=== PATIENT | female | born 1970 | race Caucasian/White ===

== ENCOUNTER → 2016-10-24 | Outpatient (CLI) | payer OTHER ==
--- NOTE | 2016-10-24 08:50 | MM ---
Reason for exam: follow-up at short interval from prior study. Last mammogram was performed 6 months ago. History: Family history of premenopausal breast cancer in 2 sisters at age 48 and breast cancer in sister at age 52. Benign excisional biopsy of the right breast. Took hormonal contraceptives for 5 years. MG Diagnostic Mammo RT w CAD CC and MLO view(s) were taken of the right breast. Prior study comparison: April 13, 2016, right breast MG work up mamm w CAD RT. April 10, 2016, bilateral MG screening mammo w CAD. The breast tissue is extremely dense which could obscure a lesion on mammography. Density in question appears improved. Continued 6 month follow up These results were verbally communicated with the patient and result sheet given to the patient on 10/24/16. ASSESSMENT: Probably benign, BI-RAD 3 RECOMMENDATION: Follow-up diagnostic mammogram of both breasts in 6 months.
== END | disposition home or self-care (01) ==
LOC: RADMAMWWP 08:09
PROVIDERS: ATTEND Obstetrics & Gynecology
DX: R92.8 Other abnormal and inconclusive findings on diagnostic imaging of breast (principal); Z80.3 Family history of malignant neoplasm of breast

== ENCOUNTER → 2017-01-02 | Outpatient (CLI) | payer OTHER ==
--- NOTE | 2017-01-02 22:40 | CT ---
EXAMINATION TYPE: CT abdomen pelvis w con DATE OF EXAM: 01/02/2017 7:29 PM HISTORY: F/U after endometrial CA. CT DLP: 1586.1mGycm Automated Exposure Control for Dose Reduction was Utilized. CONTRAST: CT scan of the abdomen and pelvis is performed with IV Contrast, patient injected with 100 mL of Omni paque 300. COMPARISON: CT abdomen pelvis May 05, 2016 FINDINGS: LUNG BASES: No significant abnormality is appreciated. LIVER/GB: No significant abnormality is appreciated. PANCREAS: No significant abnormality is seen. SPLEEN: No significant abnormality is seen. ADRENALS: No significant abnormality is seen. KIDNEYS: No significant abnormality is seen. BOWEL: Evaluation bowel is slightly suboptimal secondary to oral contrast only reaching proximal ilea l loops. There is no suspicious small or large bowel dilatation seen. Normal-appearing appendix is se en from the cecum. UTERUS/ADNEXA: The uterus is surgically absent. There is interval hysterectomy noted. No suspicious a dnexal masses are seen. LYMPH NODES: There is new left external iliac chain adenopathy or abnormal lymph node measuring 2.4 x 1.6 cm on axial image 73. Subcentimeter right external iliac lymph node on axial image 77 is stable. OSSEOUS STRUCTURES: No significant abnormality is seen. OTHER: There is persistent focal prominence of the draining bilateral ovarian veins over iliopsoas mu scles near axial image 53. Developing adenopathy at this level cannot be excluded. IMPRESSION: Interval hysterectomy but new new left pelvic or external iliac chain adenopathy or metas tatic disease is noted. Nonspecific prominence possible subcentimeter lymph nodes along draining ovar doris veins can be followed.
== END | disposition home or self-care (01) ==
LOC: RADCTMAIN 17:07
PROVIDERS: ATTEND Obstetrics & Gynecology
DX: C54.1 Malignant neoplasm of endometrium (principal); Z90.710 Acquired absence of both cervix and uterus
CPT/HCPCS: 74177; Q9967; 80053; 80061; 82306; 83036; 83540; 83550; 84439; 84443; 85025

== ENCOUNTER → 2017-04-16 | Outpatient (CLI) | payer OTHER ==
--- NOTE | 2017-04-16 22:38 | CT ---
EXAMINATION TYPE: CT ChestAbdPelvis w con DATE OF EXAM: 04/16/2017 COMPARISON: 01/02/2017 and 05/05/2016 HISTORY: 46-year-old female follow-up up after endometrial CA. TECHNIQUE: Contiguous axial scanning of the chest, abdomen, and pelvis performed with IV Contrast, pa tient injected with 100 mL of Omnipaque 300. Delayed images through the kidneys were obtained. Davies l/sagittal reconstructions performed. CT DLP: 1498.7 mGycm Automated exposure control for dose reduction was used. FINDINGS: CHEST: The heart is normal size without pericardial effusion. Aorta normal caliber with conventional arch vessel branching anatomy. No thoracic lymphadenopathy. Lungs are clear without consolidation or pleural effusion. ABDOMEN: Small hiatal hernia. Liver, gallbladder, adrenal glands, kidneys, spleen, and pancreas appear within normal limits. No dilated small bowel, free fluid, or free air. There is mild to moderate stool burden without pericolonic inflammatory change. Scattered nonenlarged and borderline enlarged mesenteric lymph nodes measuring up to 8 mm are unchang ed from 05/05/2016. Nodularity along the gonadal veins is relatively stable as compared to 01/02/2017 measuring up to 1.2 c m on the right and 7 mm on the left. PELVIS: Bladder is urine distended. Uterus surgically absent. Ovaries surgically absent. No abnormal fluid co llection in the pelvis. Left external iliac chain lymph node is slightly smaller measuring 1.4 cm versus 1.8 cm, previously. Right external iliac chain lymph node is slightly smaller measuring 6 mm versus 9 mm, previously. No new or progressive lymphadenopathy seen. BONES: No osseous destructive process. IMPRESSION: 1. PREVIOUS EXTRA ILIAC CHAIN LYMPHADENOPATHY SHOWS SLIGHT DECREASE IN SIZE (LEFT: 1.4 CM VERSUS 1.8 CM, PREVIOUSLY; RIGHT: 6 MM VERSUS 9 MM, PREVIOUSLY). 2. NODULARITY ALONG THE GONADAL VEINS PROBABLY REPRESENTING SMALL LYMPH NODES IS ESSENTIALLY STABLE M EASURING UP TO 1.2 CM ON THE RIGHT AND 7 MM ON THE LEFT. 3. OTHER SCATTERED NONENLARGED AND BORDERLINE ENLARGED MESENTERIC LYMPH NODES ARE UNCHANGED FROM 2015. 4. STATUS POST HYSTERECTOMY AND BILATERAL SALPINGO-OOPHORECTOMY. 5. SMALL HIATAL HERNIA.
== END | disposition home or self-care (01) ==
LOC: RADCTMAIN 16:45
PROVIDERS: ATTEND Obstetrics & Gynecology
DX: C54.1 Malignant neoplasm of endometrium (principal); K44.9 Diaphragmatic hernia without obstruction or gangrene; Z90.710 Acquired absence of both cervix and uterus; Z90.722 Acquired absence of ovaries, bilateral
CPT/HCPCS: 71260; 74177; Q9967

== ENCOUNTER → 2017-04-23 | Outpatient (CLI) | payer OTHER ==
--- NOTE | 2017-04-23 08:54 | MM ---
Reason for exam: follow-up at short interval from prior study. Last mammogram was performed 6 months ago. History: Patient is postmenopausal and has history of endometrial cancer at age 45. Family history of premenopausal breast cancer in 2 sisters at age 48 and breast cancer in sister at age 52. Benign excisional biopsy of the right breast. Took hormonal contraceptives for 5 years. Taking estrogen for 1 year beginning at age 45. Physical Findings: Nurse did not find any significant physical abnormalities on exam. MG Diagnostic Mammo w CAD JOHN Bilateral CC and MLO view(s) were taken. Prior study comparison: October 24, 2016, right breast MG diagnostic mammo RT w CAD. The breast tissue is extremely dense which could obscure a lesion on mammography. Finding: There are two punctate calcifications in the right breast. No significant changes in finding since October 24, 2016. These results were verbally communicated with the patient and result sheet given to the patient on 04/23/17. ASSESSMENT: Benign, BI-RAD 2 RECOMMENDATION: Routine screening mammogram of both breasts in 1 year.
== END | disposition home or self-care (01) ==
LOC: RADMAMWWP 08:20
PROVIDERS: ATTEND Obstetrics & Gynecology
DX: R92.8 Other abnormal and inconclusive findings on diagnostic imaging of breast (principal)

== ENCOUNTER → 2018-04-30 | Outpatient (CLI) | payer OTHER ==
--- NOTE | 2018-05-01 10:40 | MM ---
Reason for exam: additional evaluation requested from prior study. Last mammogram was performed 1 year ago. History: Patient is postmenopausal and has history of endometrial cancer at age 45. Family history of premenopausal breast cancer in 2 sisters at age 48 and breast cancer in sister at age 52. Benign excisional biopsy of the right breast. Took hormonal contraceptives for 5 years. Taking estrogen for 1 year beginning at age 45. Physical Findings: Nurse did not find any significant physical abnormalities on exam. MG Diagnostic Mammo w CAD JOHN Bilateral CC and MLO view(s) were taken. Prior study comparison: April 23, 2017, bilateral MG diagnostic mammo w CAD JOHN. October 24, 2016, right breast MG diagnostic mammo RT w CAD. The breast tissue is heterogeneously dense. This may lower the sensitivity of mammography. There is chronic nodularity in the left breast. No significant new findings when compared with previous films. These results were verbally communicated with the patient and result sheet given to the patient on 04/30/18. ASSESSMENT: Negative, BI-RAD 1 RECOMMENDATION: Routine screening mammogram of both breasts in 1 year. (Given the patient's strong family history, the patient may qualify for alternating screening with breast MRI. Also, consideration can be given to genetic testing).
== END | disposition home or self-care (01) ==
LOC: RADMAMWWP 08:10
PROVIDERS: ATTEND Obstetrics & Gynecology
DX: R92.8 Other abnormal and inconclusive findings on diagnostic imaging of breast (principal)
CPT/HCPCS: 77066

== ENCOUNTER → 2018-05-31 | Day surgery (SDC) | payer OTHER ==
[2018-05-28 14:15] VITALS: BMI 35.6
[~2018-05-31] MED LIST: LACTATED RINGERS 1,000 ML IV ONE; LACTATED RINGERS 1,000 ML IV SCH; LIDOCAINE 1% 20 ML VIAL (10MG/ML) FOR IV START INTRADERMA PRN; LIDOCAINE 1% INJ 10MG/ML (20 ML MDV) ONE; PROPOFOL 10 MG/ML 20 ML VIAL IV ONE; fentaNYL (PF) 50 MCG/ML 2 ML AMP ONE
[2018-05-31 07:07] VITALS: TEMP 98.1
--- NOTE | 2018-05-31 07:39 | P.GSHP ---
History of Present Illness H&P Date: 05/31/18 Chief Complaint: Colon cancer screening Patient here today for colonoscopy. Last colonoscopy 7 years ago. Family history of colon cancer in both her mother and father. No bowel complaints. No history of polyps. Past Medical History Past Medical History: Cancer, Hyperlipidemia Additional Past Medical History / Comment(s): migraines, heart murmer "when younger", endometrial cancer History of Any Multi-Drug Resistant Organisms: None Reported Past Surgical History: Breast Surgery, Hysterectomy Additional Past Surgical History / Comment(s): D&C, ovarian cyst, rt breast biopsy, he knee surgery Past Anesthesia/Blood Transfusion Reactions: Motion Sickness, Postoperative Nausea & Vomiting (PONV) Smoking Status: Never smoker - Past Family History Mother Family Medical History: Cancer Father Family Medical History: Cancer Sister(s) Family Medical History: Cancer Brother(s) Family Medical History: Cancer Medications and Allergies Home Medications Medication Instructions Recorded Confirmed Type ALPRAZolam [Xanax] 0.25 mg PO BID PRN 04/19/16 05/28/18 History Multivitamins, Thera [Multivitamin] 1 tab PO DAILY 04/19/16 05/28/18 History buPROPion XL [Wellbutrin Xl] 150 mg PO DAILY 04/19/16 05/28/18 History Ascorbic Acid [Vitamin C] 500 mg PO DAILY 05/28/18 05/28/18 History Calcium Carbonate 1,000 mg PO DAILY 05/28/18 05/28/18 History Estradiol [Estrace] 1 mg PO DAILY 05/28/18 05/28/18 History Rosuvastatin [Crestor] 10 mg PO HS 05/28/18 05/28/18 History Vitamin D3 25 mcg PO DAILY 05/28/18 05/28/18 History Allergies Allergy/AdvReac Type Severity Reaction Status Date / Time No Known Allergies Allergy Verified 05/28/18 14:07 Surgical - Exam Vital Signs Temp Pulse Resp BP Pulse Ox 98.1 F 70 19 105/47 96 05/31/18 07:05 05/31/18 07:05 05/31/18 07:05 05/31/18 07:05 05/31/18 07:05 Physical exam: General: Well-developed, well-nourished HEENT: Normocephalic, sclerae nonicteric Abdomen: Nontender, nondistended Extremities: No edema Neuro: Alert and oriented Assessment and Plan (1) Colon cancer screening Narrative/Plan: Will proceed with colonoscopy at this time. Current Visit: Yes Status: Acute Code(s): Z12.11 - ENCOUNTER FOR SCREENING FOR MALIGNANT NEOPLASM OF COLON SNOMED Code(s): 328201038
--- NOTE | 2018-05-31 07:52 | P.PCN ---
Date of Procedure: 05/31/18 Procedure(s) Performed: PREOPERATIVE DIAGNOSIS: Colon cancer screening, family history POSTOPERATIVE DIAGNOSIS: Diverticulosis PROCEDURE: Colonoscopy ANESTHESIA: MAC SURGEON: Brady Stevens M.D. SPECIMENS: None ENDOSCOPIC PROCEDURE: The patient was placed on the endoscopy table in the left decubitus position. The Olympus colonoscope was inserted into the anus and passed under direct visualization to the base of the cecum. The appendiceal orifice was visualized. From that point the scope was slowly withdrawn inspecting all surfaces carefully. There were no neoplastic inflammatory or polypoid lesions throughout the cecum, ascending, transverse, descending, sigmoid and rectum. There was mild left-sided diverticulosis noted. Digital rectal examination was normal. The patient was taken to the recovery room in stable condition per anesthesia guidelines. RECOMMENDATIONS: Increase fiber. Follow-up colonoscopy 5 years.
[2018-05-31 07:56] VITALS: RESP 16
[2018-05-31 08:15] VITALS: BP 104/69; PULSE 61
== END ==
LOC: ORWHC2ENDO 06:49
PROVIDERS: ATTEND Surgery
DX: Z12.11 Encounter for screening for malignant neoplasm of colon (principal); K57.30 Diverticulosis of large intestine without perforation or abscess without bleeding; Z80.0 Family history of malignant neoplasm of digestive organs; Z85.42 Personal history of malignant neoplasm of other parts of uterus; E78.5 Hyperlipidemia, unspecified; Z79.899 Other long term (current) drug therapy
CPT/HCPCS: J2001; J3010; J2704; G0105

== ENCOUNTER → 2018-06-17 | Outpatient (CLI) | payer OTHER ==
--- NOTE | 2018-06-18 08:44 | XR ---
EXAMINATION TYPE: XR chest 2V DATE OF EXAM: 06/17/2018 COMPARISON: 05/05/2016 TECHNIQUE: PA and lateral views submitted. HISTORY: Pain FINDINGS: The lungs are clear and there is no pneumothorax, pleural effusion, or focal pneumonia. No overt fa ilure. Hypertrophic degenerative change of the spine. IMPRESSION: 1. No acute process.
--- NOTE | 2018-06-18 10:18 | CT ---
EXAMINATION TYPE: CT abdomen pelvis w con DATE OF EXAM: 06/17/2018 COMPARISON: CT 04/16/2017 HISTORY: Pelvic cramps x5 months with nausea CT DLP: 1431.4 mGycm Automated exposure control for dose reduction was used. TECHNIQUE: Helical acquisition of images from the lung bases through the pelvis have been completed. CONTRAST: Performed with Oral Contrast and with IV Contrast, patient injected with 100 mL of Isovue 300. FINDINGS: Minimal basilar atelectatic changes present. Small hiatal hernia suspected. LUNG BASES: No significant abnormality is appreciated. AORTA: No significant abnormality is appreciated. LIVER/GB: No significant abnormality is appreciated. Liver shows low attenuation and is at the upper limit of normal for size, there may be underlying hepatic steatosis PANCREAS: No significant abnormality is seen. SPLEEN: Stable, enlarged ADRENALS: No significant abnormality is seen. KIDNEYS: No significant abnormality is seen. REPRODUCTIVE ORGANS: Uterus and adnexal structures have been removed. BOWEL: Diverticular changes noted in the sigmoid colon. FREE AIR: No Free Air visible. ASCITES: None visible. PELVIC ADENOPATHY: There is improvement along the iliac chain compared to prior exam, no enlarged no obed. RETROPERITONEAL ADENOPATHY: No Retroperitoneal Adenopathy visible. URINARY BLADDER: No significant abnormality is seen. OSSEOUS STRUCTURES: Stable, degenerative disc changes are present in the visualized spine, bony spur present T12-L1 and a left posterior paracentral location IMPRESSION: POSTOP CHANGES. NO SUSPICIOUS ADENOPATHY, IMPROVEMENT IN EXTERNAL ILIAC ADENOPATHY COMPARED TO PRIOR EXAM ON THE LEFT. DIVERTICULOSIS. Additional findings above, no significant interval change
== END | disposition home or self-care (01) ==
LOC: RADCTMAIN 16:17
PROVIDERS: ATTEND Obstetrics & Gynecology
DX: C54.1 Malignant neoplasm of endometrium (principal); K57.30 Diverticulosis of large intestine without perforation or abscess without bleeding; R93.2 Abnormal findings on diagnostic imaging of liver and biliary tract; R16.1 Splenomegaly, not elsewhere classified; Z90.710 Acquired absence of both cervix and uterus; Z98.890 Other specified postprocedural states
CPT/HCPCS: 71046; 74177; Q9967

== ENCOUNTER → 2019-07-30 | Outpatient (CLI) | payer OTHER ==
--- NOTE | 2019-08-01 11:38 | MM ---
Reason for exam: screening (asymptomatic). Last mammogram was performed 1 year and 3 months ago. History: Patient is postmenopausal and has history of endometrial cancer at age 45. Family history of premenopausal breast cancer in 2 sisters at age 48 and breast cancer in sister at age 52. Benign excisional biopsy of the right breast. Took hormonal contraceptives for 5 years. Taking estrogen for 1 year beginning at age 45. Physical Findings: A clinical breast exam by your physician is recommended on an annual basis and results should be correlated with mammographic findings. MG Screening Mammo w CAD Bilateral CC and MLO view(s) were taken. Prior study comparison: April 30, 2018, bilateral MG diagnostic mammo w CAD JOHN. April 23, 2017, bilateral MG diagnostic mammo w CAD JOHN. The breast tissue is heterogeneously dense. This may lower the sensitivity of mammography. There is no discrete abnormality. No significant changes when compared with prior studies. ASSESSMENT: Negative, BI-RAD 1 RECOMMENDATION: Routine screening mammogram of both breasts in 1 year.
== END ==
LOC: RADMAMWWP 16:15
PROVIDERS: ATTEND Obstetrics & Gynecology
DX: Z12.31 Encounter for screening mammogram for malignant neoplasm of breast (principal); Z80.3 Family history of malignant neoplasm of breast
CPT/HCPCS: 77067

== ENCOUNTER → 2020-09-24 | Outpatient (CLI) | payer OTHER ==
--- NOTE | 2020-09-27 09:35 | MM ---
Reason for exam: screening (asymptomatic). Last mammogram was performed 1 year and 2 months ago. History: Patient is postmenopausal and has history of endometrial cancer at age 45. Family history of premenopausal breast cancer in 2 sisters at age 48, breast cancer in maternal grandmother, and breast cancer in sister at age 52. Benign excisional biopsy of the right breast. Took hormonal contraceptives for 5 years. Taking estrogen for 5 years beginning at age 45. Physical Findings: A clinical breast exam by your physician is recommended on an annual basis and results should be correlated with mammographic findings. MG Screening Mammo w CAD Bilateral CC and MLO view(s) were taken. XCCL view(s) were taken of the right breast. Prior study comparison: July 30, 2019, bilateral MG screening mammo w CAD. April 30, 2018, bilateral MG diagnostic mammo w CAD JOHN. The breast tissue is heterogeneously dense. This may lower the sensitivity of mammography. Focal asymmetry upper outer left breast. This finding is changed when compared with previous exams. ASSESSMENT: Incomplete: need additional imaging evaluation, BI-RAD 0 RECOMMENDATION: Special view mammogram of the left breast. If lesion persists on supplemental views, image directed ultrasound is recommended. [facility] will attempt to contact patient to return for supplemental views and ultrasound if indicated.
== END | disposition home or self-care (01) ==
LOC: RADMAMWWP 10:07
PROVIDERS: ATTEND Obstetrics & Gynecology
DX: Z12.31 Encounter for screening mammogram for malignant neoplasm of breast (principal)
CPT/HCPCS: 77067

== ENCOUNTER → 2020-10-08 | Outpatient (CLI) | payer OTHER ==
--- NOTE | 2020-10-08 11:45 | MM ---
Reason for exam: additional evaluation requested from abnormal screening. Last mammogram was performed less than 1 month ago. History: Patient is postmenopausal and has history of endometrial cancer at age 45. Family history of premenopausal breast cancer in 2 sisters at age 48, breast cancer in maternal grandmother, and breast cancer in sister at age 52. Benign excisional biopsy of the right breast. Took hormonal contraceptives for 5 years. Taking estrogen for 5 years beginning at age 45. Physical Findings: Nurse did not find any significant physical abnormalities on exam. MG Work Up Mamm w CAD LT Spot compression CC, spot compression MLO, and LM view(s) were taken of the left breast. Prior study comparison: September 24, 2020, bilateral MG screening mammo w CAD. July 30, 2019, bilateral MG screening mammo w CAD. There is no discrete abnormality including area of concern. These results were verbally communicated with the patient and result sheet given to the patient on 10/08/20. ASSESSMENT: Negative, BI-RAD 1 RECOMMENDATION: Return to routine screening mammogram schedule for both breasts.
== END | disposition home or self-care (01) ==
LOC: RADMAMWWP 10:10
PROVIDERS: ATTEND Obstetrics & Gynecology
DX: R92.8 Other abnormal and inconclusive findings on diagnostic imaging of breast (principal)
CPT/HCPCS: 77065

== ENCOUNTER → 2021-12-13 | Outpatient (CLI) | payer OTHER ==
--- NOTE | 2021-12-13 16:49 | BD ---
EXAMINATION TYPE: Axial Bone Density DATE OF EXAM: 12/13/2021 COMPARISON: NONE CLINICAL HISTORY: 51 years year old Female. ICD-10 CODE: [id number] Height: 5'5 1/2 Weight: 213 FRAX RISK QUESTIONS: Family History (Parent hip fracture): y Secondary Osteoporosis: RISK FACTORS HISTORY OF: Family History of Osteoporosis: y Postmenopausal woman: y MEDICATIONS: Additional Medications: anxiety Additional History: endometrial cancer, 2016 EXAM MEASUREMENTS: Bone mineral densitometry was performed using the Linguastat System. Bone mineral density as measured about the Lumbar spine is: ----- L1-L4(G/cm2): 1.073 T Score Values are as follows: ----- L1: -1.0 ----- L2: -1.0 ----- L3: -0.8 ----- L4: -1.0 ----- L1-L4: -0.9 Bone mineral density about the R hip (g/cm2): 0.939 Bone mineral density about the L hip (g/cm2): 0.983 T Score values are as follows: -----R Neck: -0.7 -----L Neck: -0.4 -----R Total: -0.4 -----L Total: -0.3 FRAX%s: The graph provided illustrates a 8.1 chance for a major osteoporotic fx and a 0.1 chance for the hips probability for fx in 10 years time. IMPRESSION: Normal (Values between +1 and -1 indicate normal bone mass). Note that measurements are bordering on osteopenia lumbar spine. Consider repeating this study in 5 years or sooner if there is some new cli nical indication. NOTE: T-SCORE=SD OF THE YOUNG ADULT MEAN.
--- NOTE | 2021-12-14 11:02 | MM ---
Reason for exam: screening (asymptomatic). Last mammogram was performed 1 year and 2 months ago. History: Patient is postmenopausal and has history of endometrial cancer at age 45. Family history of premenopausal breast cancer in 2 sisters at age 48, breast cancer in maternal grandmother, and breast cancer in sister at age 52. Benign excisional biopsy of the right breast. Took hormonal contraceptives for 5 years. Took estrogen for 6 years beginning at age 45. Physical Findings: A clinical breast exam by your physician is recommended on an annual basis and results should be correlated with mammographic findings. MG Screening Mammo w CAD Bilateral CC and MLO view(s) were taken. Prior study comparison: September 24, 2020, bilateral MG screening mammo w CAD. July 30, 2019, bilateral MG screening mammo w CAD. April 30, 2018, bilateral MG diagnostic mammo w CAD JOHN. The breast tissue is heterogeneously dense. This may lower the sensitivity of mammography. There is chronic nodularity in the left breast. Vague focal asymmetry central 8-9 o'clock is new or more defined. ASSESSMENT: Incomplete: need additional imaging evaluation, BI-RAD 0 RECOMMENDATION: Special view mammogram of the left breast. (3D) If lesion persists on supplemental views, image directed ultrasound is recommended. [facility] will attempt to contact patient to return for supplemental views and ultrasound if indicated.
== END | disposition home or self-care (01) ==
LOC: RADMAMWWP 06:52
PROVIDERS: ATTEND Obstetrics & Gynecology
DX: Z12.31 Encounter for screening mammogram for malignant neoplasm of breast (principal); Z78.0 Asymptomatic menopausal state; Z80.3 Family history of malignant neoplasm of breast; Z85.42 Personal history of malignant neoplasm of other parts of uterus
CPT/HCPCS: 77067; 77080

== ENCOUNTER → 2021-12-15 | Outpatient (CLI) | payer OTHER ==
--- NOTE | 2021-12-16 11:55 | MM ---
Reason for exam: additional evaluation requested from abnormal screening. Last mammogram was performed less than 1 month ago. History: Patient is postmenopausal and has history of endometrial cancer at age 45. Family history of premenopausal breast cancer in 2 sisters at age 48, breast cancer in maternal grandmother, and breast cancer in sister at age 52. Benign excisional biopsy of the right breast. Took hormonal contraceptives for 5 years. Took estrogen for 6 years beginning at age 45. Physical Findings: A clinical breast exam by your physician is recommended on an annual basis and results should be correlated with mammographic findings. MG 3D Work Up W/Cad LT Spot compression CC, spot compression MLO, and LM view(s) were taken of the left breast. Prior study comparison: December 13, 2021, bilateral MG screening mammo w CAD. October 08, 2020, left breast MG work up mamm w CAD LT. New area of focal asymmetry 6 o'clock may have some distortion. Results were given to the patient verbally at the time of the exam. ASSESSMENT: Incomplete: need additional imaging evaluation, BI-RAD 0 RECOMMENDATION: Ultrasound of the left breast.
--- NOTE | 2021-12-16 11:59 | USB ---
Reason for exam: additional evaluation requested from abnormal screening. History: Patient is postmenopausal and has history of endometrial cancer at age 45. Family history of premenopausal breast cancer in 2 sisters at age 48, breast cancer in maternal grandmother, and breast cancer in sister at age 52. Benign excisional biopsy of the right breast. Took hormonal contraceptives for 5 years. Took estrogen for 6 years beginning at age 45. Physical Findings: A clinical breast exam by your physician is recommended on an annual basis and results should be correlated with mammographic findings. US Breast Workup LT Technologist: Palma Ahn Left complete breast ultrasound includes all four quadrants, the retroareolar region and axilla. Finding demonstrates a 1.0 x 0.6 x 0.8cm vascular lesion at 1 o'clock, 8cm from nipple seems to correspond to a prominent node that is stable, biopsy recommended, a 1.5 x 2.0 x 1.9cm irregular, spiculated, vascular lesion at 6 o'clock, BIRADS 5 and a 5 x 5 x 3mm oval lesion at 11 o'clock, 2cm from nipple, possible small cyst with debris. Results were given to the patient verbally at the time of the exam. ASSESSMENT: Highly suggestive of malignancy, BI-RAD 5 RECOMMENDATION: Ultrasound core biopsy of the left breast. (2 sites) Called Dr. Wolfe's office with mammographic findings and has scheduled an appointment for the patient for 02/01/22 at 4:[address] Alejandro. Biopsy scheduled for 12/28/21 at 12:30. PRELIMINARY REPORT CALLED AND FAXED TO DR. ALEJANDRO ON 12/16/21.
== END | disposition home or self-care (01) ==
LOC: RADMAMWWP 14:21
PROVIDERS: ATTEND Obstetrics & Gynecology
DX: R92.8 Other abnormal and inconclusive findings on diagnostic imaging of breast (principal); Z78.0 Asymptomatic menopausal state; Z80.3 Family history of malignant neoplasm of breast
CPT/HCPCS: 77061; 77065

== ENCOUNTER → 2021-12-28 | Day surgery (SDC) | payer OTHER ==
--- NOTE | 2021-12-28 16:26 | USB ---
EXAMINATION TYPE: US biopsy breast VAD LT, US biopsy breast add'l VAD LT, MG diagnostic mammo LT wo CAD DATE OF EXAM: 12/28/2021 CLINICAL HISTORY: R92.8 abnormal mammogram. Abnormal ultrasound. TECHNIQUE: Ultrasound guided core biopsy of left breast 2 levels with clip placement and follow-up diagnostic two-view mammogram. COMPARISON: Prior diagnostic left breast mammogram and ultrasound workup December 15, 2021 FINDINGS: The procedure of ultrasound guided core biopsy was explained to the patient. Benefits, alternatives, and risks were discussed. An informed consent was then obtained. The patient was placed in supine positioning for imaging and for the procedure. Preprocedure imaging redemonstrates larger lobulated hypoechoic mass 6:00 position left breast measuring just under 2.0 cm long axis and smaller oval suspicious hypoechoic mass 1:00 position possible abnormal lymph node. The overlying skin was prepped and draped in usual sterile fashion. Lidocaine areas used as anesthetic into the skin and subcutaneous tissue up to area of concern in the left breast. Under ultrasound guidance a vacuum assisted biopsy gun device was used to obtain 2 core samples in the larger 6:00 mass and 3 core samples in the smaller 1:00 lesion. Following this, a biopsy clip was left in each lesion. The patient tolerated the procedure well without any immediate complication. The patient was kept in the radiology department for short stay after the procedure and then discharged home in stable condition. Postprocedure mammogram shows successful deployment of both clips with 6:00 lesion corresponding to area of concern on original mammogram. The outer 1:00 lesion has been present on multiple prior mammograms favored benign back through 2011 in retrospect. IMPRESSION: Successful, uncomplicated ultrasound guided core biopsy of 2 areas of concern in the left breast, full pathology results to follow. High index of suspicion for the 6:00 lesion. Low index of suspicion for the 1:00 lesion. Pathology Results: Malignant A. LEFT BREAST, 6:00, ULTRASOUND GUIDED CORE BIOPSY: Invasive moderately differentiated ductal carcinoma (Grade 2). See Surgical Pathology Cancer Case Summary and Comment. B. LEFT BREAST, 1:00, ULTRASOUND GUIDED CORE BIOPSY: Invasive moderately differentiated ductal carcinoma (Grade 2) with associated lymphoid tissue suggestive of lilliam metastasis. See Surgical Pathology Cancer Case Summary and Comment. Recommendation Surgical consult of the left breast. [facility]
== END ==
LOC: RADUSWWP 12:26
PROVIDERS: ATTEND Surgery
DX: C50.812 Malignant neoplasm of overlapping sites of left female breast (principal); C50.412 Malignant neoplasm of upper-outer quadrant of left female breast
CPT/HCPCS: 19083; 88305; 88342; 88341; 77065; 19084; A4648

== ENCOUNTER → 2022-01-09 | Outpatient (CLI) | payer OTHER ==
--- NOTE | 2022-01-09 17:22 | CA ---
Transthoracic Echo Report Name: Oliva Crockett Age: 51 Gender: F : 1970 Exam Date: 01/09/2022 15:48 Exam Location: [place] [facility] Ht (in): 65 Wt (lb): 215 Ordering Physician: Sandor Umaña MD Attending/Referring Phys: Loading Manager Kimmie Horner RDCS Procedure CPT: Indications: Z01.818 ENCOUNTER FOR OTHER PREPROCEDURAL EXAMINAT Cardiac Hx: Technical Quality: Fair Contrast 1: Total Dose (mL): Contrast 2: Total Dose (mL): MEASUREMENTS (Male / Female) Normal Values 2D ECHO LV Diastolic Diameter PLAX 4.4 cm 4.2 - 5.9 / 3.9 - 5.3 cm LV Systolic Diameter PLAX 2.5 cm IVS Diastolic Thickness 1.1 cm 0.6 - 1.0 / 0.6 - 0.9 cm LVPW Diastolic Thickness 1.1 cm 0.6 - 1.0 / 0.6 - 0.9 cm LV Relative Wall Thickness 0.5 RV Internal Dim ED PLAX 3.3 cm LA Volume 52.5 cm??? 18 - 58 / 22 - 52 cm??? M-MODE Aortic Root Diameter MM 3.0 cm LA Systolic Diameter MM 3.8 cm LA Ao Ratio MM 1.3 AV Cusp Separation MM 1.9 cm DOPPLER AV Peak Velocity 140.9 cm/s AV Peak Gradient 7.9 mmHg LVOT Peak Velocity 122.4 cm/s LVOT Peak Gradient 6.0 mmHg MV Area PHT 4.3 cm??? Mitral E Point Velocity 59.4 cm/s Mitral A Point Velocity 91.2 cm/s Mitral E to A Ratio 0.7 MV Deceleration Time 175.6 ms MV E' Velocity 4.9 cm/s Mitral E to MV E' Ratio 12.2 FINDINGS Left Ventricle Normal left ventricular size, systolic function with no obvious regional wall motion abnormalities. Normal left ventricular diastolic filling pattern for age. The ejection fraction is visually estimated at 55-60 %. Mildly increased left ventricular wall thickness. Right Ventricle The right ventricle is normal in size and function. Right ventricular systolic pressure within normal limits. Right Atrium The right atrium is normal in size. Left Atrium The left atrium is normal in size. No evidence for an atrial septal defect. Mitral Valve Structurally normal mitral valve without significant stenosis or prolapse. There is no mitral regurgitation. Aortic Valve Structurally normal aortic valve without significant sclerosis or stenosis. There is no aortic regurgitation. Tricuspid Valve Structurally normal tricuspid valve without significant stenosis. Pulmonary artery systolic pressure is normal. Trace tricuspid regurgitation. Pulmonic Valve Structurally normal pulmonic valve without significant stenosis. There is no pulmonic regurgitation. Pericardium Normal pericardium without effusion. Aorta Normal aortic root dimension. CONCLUSIONS Normal LV systolic function Previewed by: Dr. Shalom Bryant MD (Electronically Signed) Final Date: 09 Jan 2022 17:21
== END | disposition home or self-care (01) ==
LOC: RADECHMAIN 15:33
PROVIDERS: ATTEND Internal Medicine Hematology & Oncology
DX: Z01.818 Encounter for other preprocedural examination (principal)
CPT/HCPCS: 93306

== ENCOUNTER 2022-01-12 13:12 | Day surgery (SDC) | payer OTHER ==
[2022-01-11 09:56] VITALS: BMI 35.2
--- NOTE | 2022-01-12 11:38 | P.GSHP ---
History of Present Illness H&P Date: 01/12/22 Chief Complaint: Left breast cancer 51-year-old female recently diagnosed with left breast cancer. Patient appears to have metastasis to an intramammary lymph node at 1:00. She is triple positive. She is scheduled today for Port-A-Cath placement for initiation of neoadjuvant chemotherapy. Past Medical History Past Medical History: Cancer Additional Past Medical History / Comment(s): migraines, heart murmer "when younger", endometrial cancer, LEFT BREAST CANCER History of Any Multi-Drug Resistant Organisms: None Reported Past Surgical History: Breast Surgery, Hysterectomy Additional Past Surgical History / Comment(s): D&C, LAPAROSCOPIC EXAM- ovarian cyst, rt breast biopsy, he arthroscopic knee surgery, LEFT BREAST BIOPSY Past Anesthesia/Blood Transfusion Reactions: Previous Problems w/ Anesthesia, Motion Sickness, Postoperative Nausea & Vomiting (PONV) Smoking Status: Never smoker - Past Family History Mother Family Medical History: Cancer Additional Family Medical History / Comment(s): colon cancer Father Family Medical History: Cancer Sister(s) Family Medical History: Cancer Additional Family Medical History / Comment(s): breast cancer, Brother(s) Family Medical History: Cancer Medications and Allergies Home Medications Medication Instructions Recorded Confirmed Type ALPRAZolam [Xanax] 0.25 mg PO BID PRN 04/19/16 01/11/22 History Multivitamins, Thera [Multivitamin] 1 tab PO DAILY 04/19/16 01/11/22 History Vitamin D3 25 mcg PO DAILY 05/28/18 01/11/22 History buPROPion SR [Wellbutrin SR] 150 mg PO BID 01/11/22 01/11/22 History Allergies Allergy/AdvReac Type Severity Reaction Status Date / Time No Known Allergies Allergy Verified 01/11/22 09:06 Surgical - Exam Physical exam: General: Well-developed, well-nourished HEENT: Normocephalic, sclerae nonicteric Abdomen: Nontender, nondistended Extremities: No edema Neuro: Alert and oriented Assessment and Plan (1) Breast cancer, left Narrative/Plan: 51-year-old female with recent diagnosis of left breast cancer. We'll proceed with Port-A-Cath placement at this time. Risks of bleeding, infection, DVT, pneumothorax, catheter malfunction, anesthesia related complications were discussed. The patient understands and wishes to proceed. Status: Acute Code(s): C50.912 - MALIGNANT NEOPLASM OF UNSPECIFIED SITE OF LEFT FEMALE BREAST SNOMED Code(s): 743877072
[~2022-01-12 13:12] MED LIST changes: +ACETAMINOPHEN TAB 500 MG TAB PO PRN; +DEXAMETHASONE SOD PHOSPHATE 4 MG/ML 1 ML VIAL IV ONE; +HEPARIN SODIUM,PORCINE/PF 5,000 UNIT/0.5 ML SYRINGE SQ PRN; -LACTATED RINGERS 1,000 ML IV ONE; -LIDOCAINE 1% 20 ML VIAL (10MG/ML) FOR IV START INTRADERMA PRN; -LIDOCAINE 1% INJ 10MG/ML (20 ML MDV) ONE; +ONDANSETRON 4 MG/2 ML VIAL IVP ONE; -PROPOFOL 10 MG/ML 20 ML VIAL IV ONE; +Pre Op ABX Message 1 EACH MISC MISCELLANE ONE; +fentaNYL (PF) 50 MCG/ML 2 ML AMP IV PRN; -fentaNYL (PF) 50 MCG/ML 2 ML AMP ONE
[2022-01-12] MEDS ORDERED: SCOPOLAMINE 1 MG/72 HR PATCH TRANSDERM ONE (14:04)
[2022-01-12] MEDS ORDERED: PROPOFOL 10 MG/ML 20 ML VIAL IV ONE (14:09)
[2022-01-12] MEDS ORDERED: diphenhydrAMINE 50 MG/ML 1 ML VIAL ONE (14:09)
[2022-01-12] MEDS ORDERED: MIDAZOLAM 2 MG/2 ML VIAL ONE (14:09)
[2022-01-12] MEDS ORDERED: LIDOCAINE 2% INJ 20 MG/ML (2 ML VIAL) ONE (14:09)
[2022-01-12] MEDS ORDERED: fentaNYL (PF) 50 MCG/ML 2 ML AMP ONE (14:09)
[2022-01-12] MEDS ORDERED: SODIUM CHLORIDE 0.9% 100 ML with ceFAZolin 2,000 MG IV ONE ×2 (14:14)
[2022-01-12] MEDS ORDERED: LIDOCAINE 1% INJ 10MG/ML (20 ML MDV) SQ ONE (14:34)
[2022-01-12] MEDS ORDERED: NALOXONE 0.4 MG/ML 1 ML VIAL IV PRN (15:07)
--- NOTE | 2022-01-12 15:09 | FL ---
EXAMINATION TYPE: FL guided central line placemt HISTORY: Fluoroscopy time Impression: 1. Fluoroscopy support provided to the referring physician.
[2022-01-12 15:13] VITALS: TEMP 97
--- NOTE | 2022-01-12 15:25 | P.OP ---
Date of Procedure: 01/12/22 Procedure(s) Performed: PREOPERATIVE DIAGNOSIS: Left breast cancer POSTOPERATIVE DIAGNOSIS: Same PROCEDURE: Port-A-Cath placement with fluoroscopic and ultrasound guidance SURGEON: Rodney EBL: Minimal ANESTHESIA: Sedation COMPLICATIONS: None OPERATIVE PROCEDURE: Patient was brought and placed on the operative table in the supine position. The patient was sedated per anesthesia that time. The chest and neck were prepped and draped in usual sterile fashion. The ultrasound probe was used to identify the location of the right internal jugular vein. The skin was localized with lidocaine. The Seldinger needle was advanced into the IJ under ultrasound guidance. The wire was advanced through the needle under fluoroscopic guidance into the superior vena cava. A port pocket was created in the right infraclavicular location. The catheter was tunneled from the wire entrance site to the port pocket. The port was then connected to the catheter. The dilator introducer was threaded over the guidewire. The guidewire and dilator were then removed. The catheter was advanced through the introducer and introducer was then removed. The tip was seen to be in the right atrial junction via fluoroscopy. A picture of the radiograph showing the tip at the radial digital junction was taken. Port was flushed with both saline and a Hep- Lock solution. There was good flow both in and out of the port. The port was sutured in underlying tissues using 3-0 silk sutures. The subcutaneous tissues were reapproximated using 3-0 Vicryl sutures and the skin at both locations using 4-0 Monocryl sutures. Skin glue and sterile dressings then applied. DISPOSITION: Stable to recovery room
--- NOTE | 2022-01-12 15:52 | XR ---
EXAMINATION TYPE: XR chest 1V portable DATE OF EXAM: 01/12/2022 COMPARISON: NONE HISTORY: Mediport catheter insertion TECHNIQUE: Single frontal view of the chest is obtained. FINDINGS: There is no focal air space opacity, pleural effusion, or pneumothorax seen. The cardiac silhouette size is within normal limits. The osseous structures are intact. Mediport catheter seen with the tip overlying the SVC. IMPRESSION: No postprocedural pneumothorax. Tip of the catheter overlies the SVC.
[2022-01-12 15:58] VITALS: BP 122/74; PULSE 77; RESP 18
== END 2022-01-12 16:30 | disposition home or self-care (01) ==
LOC: OR 13:12
PROVIDERS: ATTEND Surgery
DX: C50.912 Malignant neoplasm of unspecified site of left female breast (principal); Z17.0 Estrogen receptor positive status [ER+]; G43.909 Migraine, unspecified, not intractable, without status migrainosus; Z85.42 Personal history of malignant neoplasm of other parts of uterus; Z98.890 Other specified postprocedural states; Z90.710 Acquired absence of both cervix and uterus; Z80.0 Family history of malignant neoplasm of digestive organs; Z80.3 Family history of malignant neoplasm of breast; Z79.899 Other long term (current) drug therapy; F41.9 Anxiety disorder, unspecified; F32.A Depression, unspecified
CPT/HCPCS: 36561; 77001; 71045; C1788; J2250; J1200; J1100; J2405; J0690; J2001 ×2; J3010; J1642; J2704; J1644

== ENCOUNTER → 2022-01-13 | Outpatient (CLI) | payer OTHER ==
--- NOTE | 2022-01-16 06:03 | PE ---
EXAMINATION TYPE: PET CT fusion skull to thigh DATE OF EXAM: 01/13/2022 COMPARISON: CT abdomen and pelvis June 17, 2018 and older CTs. MRI bilateral breasts January 07, 2022 HISTORY: Newly diagnosed breast cancer. History of endometrial cancer. TECHNIQUE: Following the intravenous administration of 10.22 mCi of F-18 FDG, whole body images are performed from the skull base to the midthigh. Images are reviewed on the computer in the coronal, a xial, and sagittal planes. Reconstructed rotating images are created on independent workstation and reviewed on the computer. A localization and attenuation correction CT is performed in conjunction with the PET scan. Blood glucose level equals 118. SCAN: Initial Scan FINDINGS: SKULL BASE AND NECK: No areas of abnormal hypermetabolic uptake. CHEST, MEDIASTINUM, AND HILAR REGION: Biopsy clip corresponds to the first site of newly diagnosed ca ncer lateral left breast axial image 81 with 8 mm soft tissue density at the anterior biopsy clip, ar ea is ametabolic. Inferior and central to this at 6:00 level there is mildly hypermetabolic roughly 1 .7 cm area with biopsy clip along medial aspect axial image 101, max SUV is 4.48. No additional areas of abnormal hypermetabolic uptake in either breast or axillary region. No abnormal hypermetabolic uptake throughout the remainder of the thorax. ABDOMEN AND PELVIS: Normal excretion is seen. No areas of abnormal hypermetabolic uptake noted. OSSEOUS STRUCTURES: No areas of abnormal hypermetabolic uptake. OTHER CT: There is right internal jugular Mediport catheter terminating in SVC. Nasal septal deviatio n is present. Occasional scattered tiny pelvic phleboliths. IMPRESSION: Larger more inferior left breast neoplasm identified on PET/CT. Smaller neoplasm left isaac ast less well seen on PET/CT. No evidence of metastatic disease on this study.
== END | disposition home or self-care (01) ==
LOC: RADXRMAIN 09:56
PROVIDERS: ATTEND Internal Medicine Hematology & Oncology
DX: C50.412 Malignant neoplasm of upper-outer quadrant of left female breast (principal); Z85.42 Personal history of malignant neoplasm of other parts of uterus
CPT/HCPCS: 78815; A9552

== ENCOUNTER → 2022-05-10 | Outpatient (CLI) | payer OTHER ==
--- NOTE | 2022-05-11 07:42 | CA ---
Transthoracic Echo Report Name: Oliva Crockett Age: 51 Gender: F : 1970 Exam Date: 05/10/2022 14:48 Exam Location: [place] [facility] Ht (in): 65 Wt (lb): 214 Ordering Physician: Sandor Umaña MD Attending/Referring Phys: Shipyard Painter Helper Cecilia Kidd RDCS Procedure CPT: Indications: Z01.818 Chemo Cardiac Hx: Technical Quality: Fair Contrast 1: Total Dose (mL): Contrast 2: Total Dose (mL): MEASUREMENTS (Male / Female) Normal Values 2D ECHO LV Diastolic Diameter PLAX 3.3 cm 4.2 - 5.9 / 3.9 - 5.3 cm LV Systolic Diameter PLAX 2.3 cm IVS Diastolic Thickness 0.8 cm 0.6 - 1.0 / 0.6 - 0.9 cm LVPW Diastolic Thickness 1.1 cm 0.6 - 1.0 / 0.6 - 0.9 cm LV Relative Wall Thickness 0.6 LA Volume 21.7 cm??? 18 - 58 / 22 - 52 cm??? M-MODE Aortic Root Diameter MM 3.2 cm LA Systolic Diameter MM 2.0 cm LA Ao Ratio MM 0.6 MV E Point Septal Separation 0.9 cm AV Cusp Separation MM 1.5 cm DOPPLER AV Peak Velocity 129.3 cm/s AV Peak Gradient 6.7 mmHg MV Area PHT 6.3 cm??? MR Peak Velocity 116.3 cm/s MR Peak Gradient 5.4 mmHg Mitral E Point Velocity 59.2 cm/s Mitral A Point Velocity 82.4 cm/s Mitral E to A Ratio 0.7 MV Deceleration Time 119.5 ms MV E' Velocity 7.6 cm/s Mitral E to MV E' Ratio 7.8 TR Peak Velocity 140.5 cm/s TR Peak Gradient 7.9 mmHg Right Ventricular Systolic Press 12.9 mmHg FINDINGS Left Ventricle Mildly increased posterior wall thickness. Left ventricular ejection fraction is estimated at 45-50 %. Left ventricular cavity size normal. There is hypokinesia involving the mid to basal intraventricular septum and inferobasal wall of the left ventricle Right Ventricle The right ventricle is normal in size and function. Right Atrium The right atrium is normal in size. Left Atrium The left atrium is normal in size. Mitral Valve Structurally normal mitral valve without significant stenosis or prolapse. There is trace mitral regurgitation. Aortic Valve Structurally normal aortic valve without significant sclerosis or stenosis. There is no aortic regurgitation. Tricuspid Valve Structurally normal tricuspid valve without significant stenosis. Pulmonary artery systolic pressure is normal. Trace tricuspid regurgitation. Pulmonic Valve Structurally normal pulmonic valve without significant stenosis. There is no pulmonic regurgitation. Pericardium Normal pericardium without effusion. Aorta Normal aortic root dimension. CONCLUSIONS There is evidence of ischemic cardiomyopathy with ejection fraction in the range of 45-50% with hypokinesia of the mid to basal septum and inferobasal wall. No significant abnormality on the Doppler exam and no pericardial effusion Previewed by: Dr. Aminata Fields MD (Electronically Signed) Final Date: 11 May 2022 07:41
--- NOTE | 2022-05-16 08:17 | BMR ---
EXAMINATION TYPE: MR breast BILAT wo/w con DATE OF EXAM: 05/10/2022 COMPARISON: Prior breast MRI January 07, 2022 and PET/CT January 13, 2022 HISTORY: History of multicentric left breast neoplasm diagnosed on biopsy in December 2021 with lilliam in volvement. TECHNIQUE: A series of fat and water weighted images in the long and short axis views of both breasts are obtained in conjunction with dynamic contrast MRI with subtraction technique. The patient was i njected with 10 mL intravenous Gadavist gadolinium contrast. Three-dimensional and additional postp rocessing imaging is created on independent workstation and reviewed during official interpretation o f this study. FINDINGS: Heterogeneously dense fibroglandular tissue bilaterally is redemonstrated. T2 and STIR weig hted images redemonstrated no significant focal fluid collection or cystic masses. There is no suspic ious axillary adenopathy noted. Dynamic postcontrast imaging shows minimal background enhancement in fibroglandular tissue on current study. Delayed dynamic imaging shows no new suspicious intramammary adenopathy. With regards to the right breast, there is no pathologic enhancement or enhancing mass is identified. No abnormal skin thickening is seen. The chest wall is intact. With regards to the left breast prior enhancing spiculated mass at 6:00 position middle depth measuri ng approximately 2.6 x 2.4 cm by 2.1 cm cranial caudal dimension sagittal image 24 prior study on cur rent exam redemonstrates artifact from biopsy clip axial image 30 series 401. No to minimal residual suspicious enhancement at this level identified on current study seen best on postprocessing. Second lesion chronic nodularity in the middle depth outer upper aspect redemonstrates artifact from biopsy clip with minimal surrounding enhancement slightly more prominent along the posterior lateral area of clip measuring roughly 5 x 3 mm diminished from approximately 11 x 11 mm on dynamic imaging p rior exam. No additional suspicious enhancing masses or enhancement no areas of abnormal enhancement enhancing m ass is identified. No suspicious skin thickening is seen. The chest wall is intact. IMPRESSION: Significant partial positive treatment response as detailed above. BI-RADS 6 biopsy-proven cancer left breast. BI-RADS 1 negative study right breast Recommendation: Appropriate surgical and oncologic management of multifocal left breast neoplasm.
== END | disposition home or self-care (01) ==
LOC: RADMRIMAIN 13:40
PROVIDERS: ATTEND Internal Medicine Hematology & Oncology
DX: Z01.818 Encounter for other preprocedural examination (principal); I08.1 Rheumatic disorders of both mitral and tricuspid valves
CPT/HCPCS: 93306; 77049; A9585

== ENCOUNTER → 2023-02-14 | Outpatient (CLI) | payer OTHER ==
--- NOTE | 2023-02-14 18:35 | CA ---
Transthoracic Echo Report Name: Oliva Crockett Age: 52 Gender: F : 1970 Exam Date: 02/14/2023 14:20 Exam Location: [place] [facility] Ht (in): 65 Wt (lb): 204 Ordering Physician: Sandor Umaña MD Attending/Referring Phys: Metal Rivet Machine Operator Lisa Philip RDCS Procedure CPT: Indications: Z01.818 Cardiac Hx: Technical Quality: Good Contrast 1: Total Dose (mL): Contrast 2: Total Dose (mL): MEASUREMENTS (Male / Female) Normal Values 2D ECHO LV Diastolic Diameter PLAX 5.0 cm 4.2 - 5.9 / 3.9 - 5.3 cm LV Systolic Diameter PLAX 3.5 cm IVS Diastolic Thickness 1.0 cm 0.6 - 1.0 / 0.6 - 0.9 cm LVPW Diastolic Thickness 0.9 cm 0.6 - 1.0 / 0.6 - 0.9 cm LV Relative Wall Thickness 0.4 RV Internal Dim ED PLAX 3.1 cm LA Systolic Diameter LX 3.5 cm 3.0 - 4.0 / 2.7 - 3.8 cm LV Diastolic Volume MOD 4C 102.2 cm??? LV Systolic Volume MOD 4C 40.5 cm??? LV Ejection Fraction MOD 4C 60.4 % LV Diastolic Length 4C 8.3 cm LV Systolic Length 4C 6.5 cm LV Diastolic Volume MOD 2C 110.3 cm??? LV Systolic Volume MOD 2C 43.6 cm??? LV Ejection Fraction MOD 2C 60.5 % LV Diastolic Length 2C 7.7 cm LV Systolic Length 2C 6.4 cm LA Volume 32.4 cm??? 18 - 58 / 22 - 52 cm??? M-MODE Aortic Root Diameter MM 3.0 cm MV E Point Septal Separation 1.0 cm AV Cusp Separation MM 2.1 cm DOPPLER AV Peak Velocity 118.0 cm/s AV Peak Gradient 5.6 mmHg MV Area PHT 3.9 cm??? Mitral E Point Velocity 74.7 cm/s Mitral A Point Velocity 98.1 cm/s Mitral E to A Ratio 0.8 MV Deceleration Time 196.7 ms TR Peak Velocity 244.0 cm/s TR Peak Gradient 23.8 mmHg Right Ventricular Systolic Press 28.8 mmHg FINDINGS Left Ventricle Left ventricular ejection fraction is estimated at 55-60 %. Good systolic strain. Left ventricular cavity size normal. Left ventricular wall thickness normal. Right Ventricle Normal right ventricular size and function. Right ventricular systolic pressure within normal limits. Right Atrium Normal right atrial size. Left Atrium Normal left atrial size. Mitral Valve Structurally normal mitral valve. No mitral stenosis, regurgitation or prolapse. Aortic Valve Trileaflet aortic valve. No aortic valve stenosis or regurgitation. Tricuspid Valve Structurally normal tricuspid valve. Trace to mild tricuspid regurgitation. Pulmonic Valve Structurally normal pulmonic valve. No pulmonic regurgitation. Pericardium Normal pericardium. No pericardial effusion. Aorta Normal size aortic root and proximal ascending aorta. CONCLUSIONS 1. Normal left ventricle size and systolic function 2. Trace to mild tricuspid regurgitation with normal right-sided pressure Previewed by: Dr. Carmen Lechuga MD (Electronically Signed) Final Date: 14 February 2023 18:35
== END | disposition home or self-care (01) ==
LOC: RADECHMAIN 14:13
PROVIDERS: ATTEND Internal Medicine Hematology & Oncology
DX: Z01.818 Encounter for other preprocedural examination (principal); I36.1 Nonrheumatic tricuspid (valve) insufficiency
CPT/HCPCS: 93306

== ENCOUNTER → 2023-11-01 | Outpatient (CLI) | payer OTHER ==
--- NOTE | 2023-11-02 10:49 | CA ---
Transthoracic Echo Report Name: Oliva Crockett Age: 53 Gender: F : 1970 Exam Date: 11/01/2023 17:05 Exam Location: [place] [facility] Ht (in): 65 Wt (lb): 204 Ordering Physician: Sandor Umaña MD Attending/Referring Phys: Model And Dye Person Lisa Philip RDCS Procedure CPT: Indications: Z01.818 Chemo Cardiac Hx: Technical Quality: Fair Contrast 1: Total Dose (mL): Contrast 2: Total Dose (mL): MEASUREMENTS (Male / Female) Normal Values 2D ECHO LV Diastolic Diameter PLAX 5.1 cm 4.2 - 5.9 / 3.9 - 5.3 cm LV Systolic Diameter PLAX 3.1 cm IVS Diastolic Thickness 0.9 cm 0.6 - 1.0 / 0.6 - 0.9 cm LVPW Diastolic Thickness 1.0 cm 0.6 - 1.0 / 0.6 - 0.9 cm LV Relative Wall Thickness 0.4 RV Internal Dim ED PLAX 3.3 cm LA Systolic Diameter LX 3.8 cm 3.0 - 4.0 / 2.7 - 3.8 cm LV Diastolic Volume MOD BP 85.4 cm??? 67 - 155 / 56 - 104 cm??? LV Systolic Volume MOD BP 40.8 cm??? 22 - 58 / 19 - 49 cm??? LV Ejection Fraction MOD BP 52.2 % >= 55 % LV Cardiac Index MOD BP 1616.2 cm???/min???m??? LV Diastolic Volume MOD 4C 97.3 cm??? LV Systolic Volume MOD 4C 46.1 cm??? LV Ejection Fraction MOD 4C 52.6 % LV Cardiac Index MOD 4C 1854.4 cm???/min???m??? LV Diastolic Length 4C 7.3 cm LV Systolic Length 4C 6.8 cm LV Diastolic Volume MOD 2C 71.9 cm??? LV Systolic Volume MOD 2C 35.2 cm??? LV Ejection Fraction MOD 2C 51.0 % LV Cardiac Index MOD 2C 1327.2 cm???/min???m??? LV Diastolic Length 2C 7.8 cm LV Systolic Length 2C 6.6 cm LA Volume 43.2 cm??? 18 - 58 / 22 - 52 cm??? LA Volume Index 20.6 cm???/m??? 16 - 28 cm???/m??? M-MODE Aortic Root Diameter MM 3.2 cm MV E Point Septal Separation 0.9 cm AV Cusp Separation MM 2.3 cm DOPPLER AV Peak Velocity 119.2 cm/s AV Peak Gradient 5.7 mmHg MV Area PHT 3.1 cm??? Mitral E Point Velocity 71.3 cm/s Mitral A Point Velocity 93.9 cm/s Mitral E to A Ratio 0.8 MV Deceleration Time 242.1 ms TR Peak Velocity 229.6 cm/s TR Peak Gradient 21.1 mmHg Right Ventricular Systolic Press 26.1 mmHg FINDINGS Left Ventricle Left ventricular ejection fraction is estimated at 55 %. Left ventricular cavity size normal. Mildly increased posterior wall thickness. Mildly decreased left ventricular ejection fraction. Good systolic strain Right Ventricle Mild right ventricular dilatation. Right ventricular systolic pressure within normal limits. Right Atrium Normal right atrial size. Left Atrium Normal left atrial size. Mitral Valve Structurally normal mitral valve. No mitral stenosis, regurgitation or prolapse. Aortic Valve Trileaflet aortic valve. No aortic valve stenosis or regurgitation. Tricuspid Valve Structurally normal tricuspid valve. Trace to mild tricuspid regurgitation. Pulmonic Valve Structurally normal pulmonic valve. Trace pulmonic regurgitation. Pericardium No pericardial effusion. Aorta Normal size aortic root and proximal ascending aorta. CONCLUSIONS Normal LV systolic function Previewed by: Dr. Shalom Bryant MD (Electronically Signed) Final Date: 02 November 2023 10:48
== END | disposition home or self-care (01) ==
LOC: RADECHMAIN 16:59
PROVIDERS: ATTEND Internal Medicine Hematology & Oncology
DX: Z01.818 Encounter for other preprocedural examination (principal); C50.519 Malignant neoplasm of lower-outer quadrant of unspecified female breast; F32.A Depression, unspecified; Z71.3 Dietary counseling and surveillance
CPT/HCPCS: 93306

== ENCOUNTER → 2024-06-04 | Outpatient (CLI) | payer OTHER ==
--- NOTE | 2024-06-04 12:22 | XR ---
EXAMINATION TYPE: XR Hip Bilateral Complete DATE OF EXAM: 06/04/2024 11:38 AM CLINICAL INDICATION: Female, 53 years old with history of C50.519 F32.A Z71.3; [facility] COMPARISON: None. TECHNIQUE: XR Hip Bilateral Complete; hip was examined in the frontal and lateral projections FINDINGS: No evidence for acute process, joint dislocation or significant soft tissue swelling. Osteo phyte formation of the superior acetabulum of the hip. There is mild joint space narrowing IMPRESSION: 1. No evidence for acute process. 2. Mild bilateral hip osteoarthrosis. [facility], , 06/04/2024 12:19 PM
== END | disposition home or self-care (01) ==
LOC: RADXRMAIN 11:24
PROVIDERS: ATTEND Internal Medicine Hematology & Oncology
DX: C50.511 Malignant neoplasm of lower-outer quadrant of right female breast (principal); F32.A Depression, unspecified; M16.0 Bilateral primary osteoarthritis of hip; Z71.3 Dietary counseling and surveillance
CPT/HCPCS: 73521

== ENCOUNTER → 2024-06-10 | Outpatient (CLI) | payer OTHER ==
--- NOTE | 2024-06-11 08:37 | BD ---
EXAMINATION TYPE: Axial Bone Density DATE OF EXAM: 06/10/2024 CLINICAL HISTORY: 53 years old Female. ICD-10 CODE: C50.519 BR CANCER Height: 65 Weight: 203 FRAX RISK QUESTIONS: Alcohol (3 or more units per day): no Family History (Parent hip fracture): yes Glucocorticoids (More than 3mos): no (Ex: prednisone, prednisolone, methylprednisolone, dexamethasone, and hydrocortisone). History of Fracture in Adulthood: no Secondary Osteoporosis: 1. Type 1 Diabetes: no 2. Hyperthyroidism: no 3. Menopause before 45: yes 4. Malnutrition: no 5. Chronic liver disease: no Rheumatoid Arthritis: no Current Tobacco Use: no RISK FACTORS HISTORY OF: Surgery to Spine/Hip(right/left)/Wrist (right/left): no EXAM MEASUREMENTS: Bone mineral densitometry was performed using the [employer]ener[employer] System. Bone mineral density as measured about the Lumbar spine is: ----- L1-L4(G/cm2): 0.986 T Score Values are as follows: ----- L1: -1.6 ----- L2: -1.8 ----- L3: -1.7 ----- L4: -1.5 ----- L1-L4: -1.6 Z Score Values are as follows: ----- L1: -1.8 ----- L2: -2.0 ----- L3: -1.9 ----- L4: -1.7 ----- L1-L4: -1.8 Bone mineral density has: decreased -8.1 % since study of: 12.13.2021 Bone mineral density about the R hip (g/cm2): 0.895 Bone mineral density about the L hip (g/cm2): 0.903 T Score values are as follows: -----R Neck: -0.9 -----L Neck: -0.7 -----R Total: -0.9 -----L Total: -0.8 Z Score values are as follows: -----R Neck: -0.5 -----L Neck: -0.3 -----R Total: -0.9 -----L Total: -0.9 Bone mineral density has: decreased -6.4 % since study of: 4.12.2021 FRAX%s: The graph provided illustrates a 10.1% chance for a major osteoporotic fx and a 0.2% chance f or the hips probability for fx in 10 years time. IMPRESSION: Osteopenia (T Score between -2.5 and -1). There is slightly increased risk of fracture and the patient may be considered for treatment. Re-Screen 2-5 years. NOTE: T-SCORE=SD OF THE YOUNG ADULT MEAN. [facility], , 06/11/2024 8:34 AM
== END | disposition home or self-care (01) ==
LOC: RADBDWWP 14:15
PROVIDERS: ATTEND Internal Medicine Hematology & Oncology
DX: C50.519 Malignant neoplasm of lower-outer quadrant of unspecified female breast
CPT/HCPCS: 77080

== ENCOUNTER 2024-09-23 09:46 | Day surgery (SDC) | payer OTHER ==
[2024-09-23 10:45] VITALS: RESP 16; TEMP 97.8
[2024-09-23] MEDS: IV FLUID CONTINUATION 1,000 ML IV ONE (10:45)
[2024-09-23] MEDS: LIDOCAINE 1% (10MG/ML) FOR IV START INTRADERMA PRN (10:46)
[2024-09-23] MEDS: LACTATED RINGERS 1,000 ML IV SCH (10:46)
[2024-09-23] MEDS ORDERED: PROPOFOL 10 MG/ML 20 ML VIAL IV ONE (11:03)
--- NOTE | 2024-09-23 11:07 | P.GSHP ---
History of Present Illness H&P Date: 09/23/24 Chief Complaint: Colon cancer screening 54-year-old female here for colonoscopy. Last colonoscopy 6 to 7 years ago. Patient with family history of colon cancer in both parents. Patient with personal history of breast cancer. No bowel complaints. Last colonoscopy normal. Past Medical History Past Medical History: Cancer, Hyperlipidemia Additional Past Medical History / Comment(s): migraines, heart murmur as a child, endometrial cancer 2015, left breast ca 2021- surg & chemotherapy History of Any Multi-Drug Resistant Organisms: None Reported Past Surgical History: Breast Surgery, Hysterectomy, Orthopedic Surgery Additional Past Surgical History / Comment(s): D&C, ovarian cyst, rt breast biopsy, he knee arthroscopy, carpal tunnel surg, colonoscopy, double mastectomy Past Anesthesia/Blood Transfusion Reactions: Motion Sickness, Postoperative Nausea & Vomiting (PONV) Additional Past Anesthesia/Blood Transfusion Reaction / Comment(s): PONV once after wisdom teeth removal Smoking Status: Never smoker - Past Family History Mother Family Medical History: Cancer Father Family Medical History: Cancer Sister(s) Family Medical History: Cancer Brother(s) Family Medical History: Cancer Medications and Allergies Home Medications Medication Instructions Recorded Confirmed Type Cholecalciferol (Vitamin D3) 125 mcg PO DAILY 09/18/24 09/18/24 History [Vitamin D3 (125 MCG = 5,000 IU)] Letrozole [Femara] 2.5 mg PO DAILY 09/18/24 09/18/24 History PARoxetine [Paxil] 20 mg PO DAILY 09/18/24 09/18/24 History Red Yeast Rice/Coq10 2 tab PO DAILY 09/18/24 09/18/24 History Semaglutide [Wegovy] 1.7 mg SQ WE 09/18/24 09/18/24 History Allergies Allergy/AdvReac Type Severity Reaction Status Date / Time No Known Allergies Allergy Verified 09/23/24 10:34 Surgical - Exam Vital Signs Temp Pulse Resp BP Pulse Ox 97.8 F 80 16 103/62 96 09/23/24 10:42 09/23/24 10:42 09/23/24 10:42 09/23/24 10:42 09/23/24 10:42 Physical exam: General: Well-developed, well-nourished HEENT: Normocephalic, sclerae nonicteric Abdomen: Nontender, nondistended Extremities: No edema Neuro: Alert and oriented Assessment and Plan (1) Colon cancer screening Narrative/Plan: Will proceed with colonoscopy at this time. Current Visit: No Status: Acute Code(s): Z12.11 - ENCOUNTER FOR SCREENING FOR MALIGNANT NEOPLASM OF COLON SNOMED Code(s): 933594468
--- NOTE | 2024-09-23 11:20 | P.PCN ---
Date of Procedure: 09/23/24 Procedure(s) Performed: PREOPERATIVE DIAGNOSIS: Screening with family history of colon cancer in parents POSTOPERATIVE DIAGNOSIS: Diverticulosis PROCEDURE: Colonoscopy ANESTHESIA: MAC SURGEON: Brady Stevens M.D. SPECIMENS: None ENDOSCOPIC PROCEDURE: The patient was placed on the endoscopy table in the left decubitus position. The Olympus colonoscope was inserted into the anus and passed under direct visualization to the base of the cecum. The appendiceal orifice was visualized. From that point the scope was slowly withdrawn inspecting all surfaces carefully. There were no neoplastic inflammatory or polypoid lesions throughout the cecum, ascending, transverse, descending, sigmoid and rectum. There was mild left-sided diverticulosis noted. Digital rectal examination was normal. The patient was taken to the recovery room in stable condition per anesthesia guidelines. RECOMMENDATIONS: Resume diet. Repeat colonoscopy 5 years.
[2024-09-23 11:42] VITALS: BP 120/78; PULSE 69
== END 2024-09-23 11:53 ==
LOC: ORWHC2ENDO 09:46
PROVIDERS: ATTEND Surgery
DX: Z12.11 Encounter for screening for malignant neoplasm of colon (principal); K57.30 Diverticulosis of large intestine without perforation or abscess without bleeding; E78.5 Hyperlipidemia, unspecified; G43.909 Migraine, unspecified, not intractable, without status migrainosus; Z80.0 Family history of malignant neoplasm of digestive organs; Z85.3 Personal history of malignant neoplasm of breast; Z90.710 Acquired absence of both cervix and uterus; Z79.899 Other long term (current) drug therapy; Z79.811 Long term (current) use of aromatase inhibitors
CPT/HCPCS: 45378; J2704

== ENCOUNTER → 2025-03-13 | Outpatient (CLI) | payer OTHER ==
--- NOTE | 2025-03-13 09:38 | XR ---
EXAMINATION TYPE: XR wrist complete RT DATE OF EXAM: 03/13/2025 8:56 AM INDICATION: Patient age:Female; 54 years old; Reason for study: M25.531 R wrist pain; PHH. pain COMPARISON: None TECHNIQUE: 4 views of the right wrist. Frontal, navicular, lateral, and oblique. FINDINGS: No acute osseous pathology, joint dislocation, or joint effusion. No evidence of any soft tissue swelling is seen. IMPRESSION: No acute osseous pathology. [facility], , 03/13/2025 9:36 AM
== END | disposition home or self-care (01) ==
LOC: RADXRMAIN 08:26
PROVIDERS: ATTEND Family Medicine
DX: M25.531 Pain in right wrist (principal)